=== PATIENT | male | born 1995 | race Caucasian/White ===

== ENCOUNTER 2021-05-02 08:37 | Emergency (ER) | payer BC, SELFPAY ==
[2021-05-02 08:39] VITALS: BP 132/83; PULSE 97; RESP 18; TEMP 36.8; O2SAT 97; BMI 22.4
--- NOTE | 2021-05-02 09:00 | HMH.EDGENADL ---
ED Disposition Clinical Impression: Exposure to COVID-19 virus Disposition: Home, Self-Care Condition on Discharge: Good Instructions: DI for COVID-19 (Suspected or Confirmed ) Additional Instructions: Quarantine yourself until you obtain your COVID-19 test result. You will be called with the result. If your COVID test returns positive, the instructions for care and isolation are: Rest, drink plenty of fluids. Tylenol or Ibuprofen for fever and/or aches and pains. Monitor your symptoms. IF YOU HAVE AN EMERGENCY WARNING SIGN (INCLUDING TROUBLE BREATHING), SEEK EMERGENCY MEDICAL CARE IMMEDIATELY. COVID-19 Isolation: People with COVID-19 should isolate for 5 days. Then if they are asymptomatic (no symptoms) or their symptoms are resolving (without fever for 24 hours), follow that by 5 days of wearing a mask when around others to minimize the risk of infecting people you encounter. If you test positive for COVID-19 and never develop symptoms, day 0 is the day of your positive viral test (based on the date you were tested) and day 1 is the first full day after your positive test. If you develop symptoms after testing positive, your 5-day isolation period must start over. Day 0 is your first day of symptoms. Day 1 is the first full day after your symptoms developed. What to do: Stay in a separate room from other household members, if possible. Use a separate bathroom, if possible. Avoid contact with other members of the household and pets. Don?t share personal household items, like cups, towels, and utensils. Wear a mask when around other people if able. Referrals: Provider,Referral, [Primary Care Provider] - - Critical Care Critical Care Time: No Attestation: On 05/02/21, the high probability of a clinically significant, sudden or life threatening deterioration of the following system(s) required my full and direct attention, intervention and personal management. The time I documented below is in addition to time spent performing reported procedures but includes the following listed in this critical care notation. Medical Decision Making - Samy Inquiry Pt receiving controlled substance: No General Adult HPI - General Stated complaint: covid exposed, covid test Time Seen by Provider: 05/02/21 08:50 - History of Present Illness HPI narrative: Patient is here with his fianc?e, both requesting COVID tests. He has felt bad for 2 days with headache, fatigue, nausea. 2 of his coworkers tested positive for COVID. He has not had COVID 19 vaccine. He has asthma, no other chronic medical problems. - Related Data Home Medications Medication Instructions Recorded Confirmed No Known Home Medications 05/02/21 05/02/21 Allergies Allergy/AdvReac Type Severity Reaction Status Date / Time Penicillins Allergy Mild Verified 05/02/21 09:03 [facility] History - Hepatitis A Screen Attestation statement:: This patient has been screened for Hepatitis A risk factors. I have reviewed the patient's past medical history: Yes ROS Obtained: Yes Systems reviewed as appropriate & no additional complaints - Constitutional Constitutional: Denies fever(s), Reports headache(s) - Respiratory Respiratory: Denies cough, Denies dyspnea - Gastrointestinal Gastrointestingal: Reports: nausea. Denies: vomiting Physical Exam - General General appearance: alert, in no apparent distress - Head Head exam: atraumatic, normocephalic - Eye Eye exam: Present: normal appearance, EOMI - ENT ENT exam: Present: mucous membranes moist - Neck Neck exam: Present: normal inspection, trachea midline - Chest Chest inspection: Present: normal inspection, symmetric chest wall rise - Respiratory Respiratory exam: Present: normal lung sounds bilaterally. Absent: respiratory distress, wheezes - Cardiovascular Cardiovascular exam: Present: regular rate, normal rhythm - Extremities Exam Extremities exa
--- NOTE | 2021-05-02 09:03 | PC.NURSE ---
Covid swab sent to lab
[2021-05-02 09:29] VITALS: BP 123/78; PULSE 89; RESP 18; TEMP 36.8; O2SAT 97
[2021-05-02 09:30] VITALS: BP 123/78
== END 2021-05-02 09:38 | disposition home or self-care (01) ==
PROVIDERS: Emergency Provider Emergency Medicine
DX: Z20.822 Contact with and (suspected) exposure to COVID-19 (principal); R51.9 Headache, unspecified; R53.1 Weakness; J45.909 Unspecified asthma, uncomplicated; Z88.0 Allergy status to penicillin
CPT/HCPCS: 99282; C9803; U0003; U0005

== ENCOUNTER → 2021-05-06 10:44 | Outpatient (CLI) | payer BC, SELFPAY ==
[2021-05-07 11:54] LABS: Covid-19 Nasal PCR Sendout Lex POSITIVE
== END ==
PROVIDERS: Visit Provider Nurse Practitioner
DX: U07.1 COVID-19 (principal)
CPT/HCPCS: C9803; U0004; U0005

== ENCOUNTER 2021-09-26 11:26 | Emergency (ER) | payer BC, SELFPAY ==
[2021-09-26 11:47] VITALS: BP 151/100; PULSE 72; RESP 16; TEMP 36.4; O2SAT 100; BMI 24.3
--- NOTE | 2021-09-26 12:05 | HMH.EDUTC ---
[facility] [place] Clinical Impression: Dental abscess, Pain, dental Disposition: Home, Self-Care Condition on Discharge: Good Instructions: Tooth Abscess, DI for Tooth Abscess Additional Instructions: Take tylenol or ibuprofen for pain or fever. Take the medications as directed. Follow up with your regular doctor. GO TO THE ER FOR ANY WORSENING SYMPTOMS Follow up with your dentist as scheduled. Call them and tell them the problems you are having and see if they could move your appointment sooner. Prescriptions: Ibuprofen [Ibuprofen 800mg Tablet] 800 mg PO Q8HP PRN #30 tab PRN Reason: Moderate Pain Transmission Status: Received by [id number] clindamycin HCL [Cleocin HCl] 300 mg PO TID 10 Days #30 cap Transmission Status: Received by [id number] Referrals: Provider,Referral, [Primary Care Provider] - Time of Disposition: 12:15 Medical Decision Making - Medical Records Medical records reviewed: No: I reviewed the patient's medical records. - Samy Inquiry Pt receiving controlled substance: No Vital Signs: 09/26/21 11:47 09/26/21 12:24 Temperature 97.6 F 97.6 F Temperature Source Oral Pulse Rate 72 Pulse Rate [Left Radial] 72 Respiratory Rate 16 16 Blood Pressure 151/100 H Blood Pressure [Right Arm] 151/100 H Blood Pressure Mean [Right Arm] 117 02 Sat by Pulse Oximetry 100 [facility] [place] - General Stated complaint: oral pain Time Seen by Provider: 09/26/21 12:05 Description of Symptoms (Recalled from Triage Doc. by RN): patient comes in with complaints of abcess tooth/infection. back top left. symptoms have been going on for 2 months HEENT Symptoms (Recalled from RN notes): Yes Resp Symptoms (Recalled from RN notes): No Skin Symptoms (Recalled from RN notes): No MS Symptoms (Recalled from RN notes): No Functional Status (Recalled from RN notes): wnl - History of Present Illness Provider Complaint: He states that he has left upper dental pain for the past 2 months. He had an abscess when this first started and he took clindamycin and his symptoms got better, but over the past week they have began to return. He has a dental appt on october 15, but he states that he can't wait that long with his current symptoms. He denies any fever or chiulls. - Related Data Previous Rx's Medication Instructions Recorded Ibuprofen [Ibuprofen 800mg 800 mg PO Q8HP PRN #30 tab 09/26/21 Tablet] clindamycin HCL [Cleocin HCl] 300 mg PO TID 10 Days #30 cap 09/26/21 Allergies Allergy/AdvReac Type Severity Reaction Status Date / Time Penicillins Allergy Mild Verified 09/26/21 11:49 - Worker's Comp Is this a Worker's Comp case?: No [facility] History - Hepatitis A Screen Attestation statement:: This patient has been screened for Hepatitis A risk factors. I have reviewed the patient's past medical history: Yes ROS Obtained: Yes All systems reviewed & no additional complaints - Constitutional Constitutional: Denies chills, Denies fever(s) - Eyes Eyes: Denies eye discharge - ENT Ears, Nose, Mouth, and Throat: Reports as per HPI - Cardiovascular Cardiovascular: Denies chest pain - Respiratory Respiratory: Denies chest congestion, Denies cough - Musculoskeletal Musculoskeletal: Denies neck pain - Integumentary/Breasts Skin/Breast: Denies rash Physical Exam - General General appearance: alert, in no apparent distress - Head Head exam: atraumatic, normocephalic, normal inspection - Eye Eye exam: Present: normal appearance, PERRL, EOMI - ENT ENT exam: Present: mucous membranes moist, TM's normal bilaterally, normal external ear exam - Expanded ENT Exam Teeth exam: Present: dental caries, gingival swelling - Neck Neck exam: Present: normal inspection, full ROM, trachea midline. Absent: meningismus, lymphadenopathy - Chest Chest inspection: Present: normal inspection, symmetric chest wall rise. Absent: tenderness - Respiratory
[2021-09-26 12:24] VITALS: BP 151/100; PULSE 72; RESP 16; TEMP 36.4
== END 2021-09-26 12:24 | disposition home or self-care (01) ==
PROVIDERS: Emergency Provider Nurse Practitioner Family
DX: K04.7 Periapical abscess without sinus (principal); K08.89 Other specified disorders of teeth and supporting structures
CPT/HCPCS: 99212; G0463